=== PATIENT | male | born 1950 | race Caucasian/White ===

== ENCOUNTER 2016-12-07 03:55 | Inpatient (IN) | payer MEDICARE ==
[2016-12-07] VITALS (11 sets, daily range): BP systolic 132–184; BP diastolic 63–113; PULSE 66–134; RESP 12–24; O2SAT 96–98
[~2016-12-07] VITALS: Ht 162.6 cm; Wt 88.4 kg
[~2016-12-07 03:55] MED LIST: ATOR20TA65 PO; COLC0.6T52 PO; HYDR-4003 PO; KEN1O TOP; MECL-107 PO; METO-274 PO; OMEP20TA24 PO; WARF5TAB7 PO
--- NOTE | 2016-12-07 03:55 | ED.REPORT ---
HPI-General Illness Date of Service Dec 07, 2016 ED Provider: Dr. Sai Mae MD A 66 year old male with a history of A-fib previously requiring cardioversion, hypertension and hyperlipidemia presents to the ED via EMS with sudden onset rapid A-fib that began just prior to arrival. In the field, heart rate was in the 150's. Patient was given 20mg of Diltazem en route and heart rate upon arrival to the ED is in the 100's. The patient was awoken by the heart palpitations and reports similar symptoms during his previous episodes of A- fib. He reports 4 previous episodes of A-fib. Associated symptoms include cold sweats and a brief moment of chest pressure. He denies any chest pain, recent cough, nausea or vomiting. Patient has not been taking his spirolactone due to an adverse reaction. Nursing Notes Stated Complaint: RAPID AFIB Nursing Notes Reviewed: Yes Allergies: Coded Allergies: Sulfa (Sulfonamide Antibiotics) (Verified Allergy, Severe, Hives, 12/07/16) amlodipine (Verified Allergy, Severe, Rash,Itching,, 12/07/16) losartan (Verified Allergy, Severe, Hives, ITCHING, 12/07/16) Penicillins (Verified Adverse Reaction, Severe, N&V, 12/07/16) Scheduled Atorvastatin Calcium (Atorvastatin Calcium) 20 Mg Tablet 20 MG PO DAILY Colchicine (Colcrys) 0.6 Mg Tablet 0.6 MG PO DAILY Meclizine HCl (Meclizine HCl) 25 Mg Tablet 12.5 MG PO DAILY Metoprolol Succinate ER (Metoprolol Succinate ER) 100 Mg Tab.er.24h 50 MG PO DAILY Omeprazole Magnesium (Prilosec Otc) 20 Mg Tablet.dr 20 MG PO DAILY Triamcinolone Acet (Triamcinolone Acetonide Ointment) 1 Applic/0.25 Gm Oint 60 APPLIC TOP BID 0.1% Warfarin Sodium (Warfarin Sodium) 5 Mg Tablet 5 MG PO DAILY PT TAKES 5MG ,,,; 2.5MG ,, Scheduled PRN Hydrocodone-Acetaminophen 5-325 mg (Hydrocodone-Acetaminophen 5-325 mg) 1 Each Tablet 1 TABLET PO Q6H PRN PRN For Pain General Time Seen by MD: 03:55 Chief Complaint Other (Heart palpitations) Hx Obtained From: EMS Arrived By: Ambulance Sudden in Onset?: Yes Onset Occurred: Just prior to arrival Symptom Duration: Since onset Associated with: Denies: Chest pain, Cough, Nausea, Vomiting Pertinent Negative: Pt denies other symptoms Recent Healthcare: No recent doctor visit, No recent hospitalization Past Medical History Past Medical History 1. Atrial fibrillation (Previously required cardioversion) 2. Hypertension 3. Hyperlipidemia 4. JAIR on CPAP 5. Depression 6. Guillian [place] Past Surgical History 1. Ventral Hernia repair 2. Right elbow debridment 3. Excision of basal cell carcinoma Smoking History Former Smoker Social History Alcohol Use: 3-5 per day Drug Use: Denies drug use Other Social History: , Local resident Occupation retired Ambulatory Status Independent Review of Systems Full Review of Systems Respiratory: Denies: Non-productive cough Cardiovascular: Reports: Palpitations, Denies: Chest pain GI: Denies: Nausea, Vomiting Skin: Reports Diaphoresis Complete sys rev & neg: except as marked. Physical Exam Vital Signs Vital Signs Date Time Temp Pulse Resp B/P Pulse Ox O2 Delivery O2 Flow Rate FiO2 12/07/16 05:45 100 24 152/71 97 Room Air 12/07/16 05:14 98 22 135/68 96 Room Air 12/07/16 04:42 114 20 165/79 96 Room Air 12/07/16 04:19 107 17 157/107 97 Room Air 12/07/16 04:03 36.2 134 18 184/113 98 Room Air BP 144/102 HR 100 Initial VS: Reviewed Neck: Supple, Non-tender, Full range of motion Extremities: Vascular intact, Neuro intact, No swelling, No tenderness Skin: Warm, Dry, No cyanosis Neurologic: Alert, Oriented, Nonfocal Psychiatric: Mood/affect normal, Behavior normal, Normal thought content General/Constitutional: Awake, Alert Behavior: Positive: Anxious Head / Eyes: Atraumatic, Normocephalic, PERRL Respiratory / Chest: Atraumatic, Breath sounds NL, Breath sounds = bilat, No respiratory distress Cardiovascular: No gallop, No murmurs, No rubs, Peripheral circulation NL, Pulses = bilaterally Heart Rate / Rhythm: Positive: Irreg irregular rhythm Abdomen: Atraumatic, Soft (Obese belly), Non-tender Interpretation & Diagnostics Lab Results Interpretation Result Diagram: 12/07/16 0410 12/07/16 0410 Test 12/07/16 04:10 12/07/16 04:35 White Blood Count 6.0th/mm3 (3.8-10.1) Red Blood Count 4.59mil/mm3 (4.40-5.80) Hemoglobin 13.8g/dL (13.8-17.2) Hematocrit 39.4% (41.0-50.0) Mean Corpuscular Volume 85.8fL (81-100) Mean Corpuscular Hemoglobin 30.1pg (27.0-35.0) Mean Corpuscular Hemoglobin Concent 35.0% (32.0-37.0) Red Cell Distribution Width 12.8% (12.3-15.4) Platelet Count 221bil/L (150-400) Neutrophils (%) (Auto) 58.0% (40-74) Lymphocytes (%) (Auto) 27.7% (14-46) Monocytes (%) (Auto) 8.3% (4-12) Eosinophils (%) (Auto) 5.0% (0-5) Basophils (%) (Auto) 0.5% (0-3) Prothrombin Time 10.0sec (8.1-12.5) Prothromb Time International Ratio 0.94ratio Activated Partial Thromboplast Time 26.4sec (22.8-33.0) Sodium Level 137mEq/L (134-144) Potassium Level 3.1mEq/L (3.5-5.2) Chloride Level 93mEq/L (97-108) Carbon Dioxide Level 20mmol/L (18-29) Blood Urea Nitrogen 16mg/dL (8-27) Creatinine 0.95mg/dL (0.76-1.27) Estimat Glomerular Filtration Rate 85mL/min (>59) Glucose Level 112mg/dL (60-99) Calcium Level 8.7mg/dL (8.5-10.1) Magnesium Level 1.2mg/dL (1.6-2.6) Total Bilirubin 0.4mg/dL (0.0-1.2) Aspartate Amino Transf (AST/SGOT) 30U/L (0-50) Alanine Aminotransferase (ALT/SGPT) 21U/L (0-44) Alkaline Phosphatase 86U/L (25-160) Troponin T 0.010ug/L (0.0-0.011) Pro-B-Type Natriuretic Peptide 169pg/mL (0-376) Total Protein 7.3g/dL (6.4-8.4) Albumin 4.3g/dL (3.4-5.0) Urine Color Straw (YELLOW) Urine Appearance Clear (CLEAR,HAZY) Urine pH 6.0 (5.0-8.0) Urine Specific [place] 1.006 (1.003-1.035) Urine Protein Negativemg/dL (NEG,TRACE) Urine Glucose (UA) Negativemg/dL (NEGATIVE) Urine Ketones Negativemg/dL (NEGATIVE) Urine Occult Blood Negative (NEGATIVE) Urine Nitrite Negative (NEGATIVE) Urine Bilirubin Negative (NEGATIVE) Urine Urobilinogen Normalmg/dL (NORMAL) Urine Leukocyte Esterase Negative (NEGATIVE) Urine RBC 0-2/hpf (0-2) Urine WBC 0-5/hpf (0-5) Urine Epithelial Cells None/hpf (NONE-MOD) Urine Crystals None seen (NONE SEEN) Urine Bacteria None/hpf (NONE-FEW) Urine Hyaline Casts None/lpf (NONE) Urine Granular Casts None seen (NONE SEEN) Urine Waxy Casts None seen (NONE SEEN) Urine Red Blood Cell Casts None seen (NONE SEEN) Urine White Blood Cell Casts None seen (NONE SEEN) Urine Mucus None seen (None Seen) Urine Trichomonas None seen (NONE SEEN) Urine Yeast None (NONE SEEN) Urinalysis Comment None Urine Culture Reflexed Not indicated Hold Urine Received (Received) ECG Interpretation ECG Interpretation: Atrial fibrillation Rate 120 Posterior infarct, recent Lateral leads are also involved Time: 04:00 Interpreted by: ED physician X-Ray Chest Interpretation Chest Xray Interpretation: IMPRESSION: No acute abnormalities Interpretation / Wet Read by: Wet read ED physician Re-Eval/Medical Decision Med Decision/Clinical Course 66-year-old with intermittent atrial fibrillation on anticoagulation, presents in A. fib this morning. His rates been controlled but he remains in A. fib. His magnesium is quite low this morning is being supplemented. He will require cardioversion once his magnesium is been repleted. No indication for urgent cardioversion this morning, and that would best be deferred until his magnesium is replete. He is admitted observation status for completion of rule out protocol and cardioversion later this morning, if not already in sinus after diltiazem IV and magnesium IV. Time of Eval: 04:36 Patient Status: Condition unchanged Re-Evaluation/Progress Note: Patient is rechecked. HR = 103. He reportedly converted into sinus for a brief moment but converted back into A-fib. Time of Eval: 05:17 Patient Status: Condition improved Re-Evaluation/Progress Note: Patient is informed of his results and diagnosis. The patient understands and agrees with the intended treatment plan to admit. Consultation : Referral / Consult Name: Raymundo Burrell MD Consulted With: Hospitalist Call Returned at: 05:36 Health And Wellness Instructor: Will see patient, Agrees with eval, Agrees with plan, Accepts admit Counseled Regarding: Diagnosis, Lab results, Need for admission Discharge & Departure Primary Impression: Atrial fibrillation with RVR Additional Impression: Hypomagnesemia Disposition: ADMITTED TO HOSPITAL Discharge Condition All VS Reviewed: Yes Condition: Stable Referrals: Sameer Vaughan DO (PCP) Scribe Attestation Portions of this note were transcribed by Prince Paula. I, Dr. Mae personally performed the history, physical exam and medical decision-making; I reviewed and confirmed the accuracy of the information in the transcribed note. copies to: Sameer Vaughan Christopher W MD Dec 07, 2016 03:55 PRINCE PAULA Dec 07, 2016 04:03
[2016-12-07] MEDS ORDERED: Diltiazem 5 mg/mL 5 mL Inj IVPUSH ONE (04:10)
[2016-12-07 04:18] LABS: BASOPHILS % (AUTO) 0.5 % (0-3); MONOCYTES % (AUTO) 8.3 % (4-12); Mean Corpuscular Hemoglobin 30.1 pg (27.0-35.0); Mean Corpuscular Volume 85.8 fL (81-100); Platelet Count 221 bil/L (150-400)
[2016-12-07] MEDS: Diltiazem HCl 125 MG in 0.9% Sodium Chloride 100 ML, Pharmacy To Mix 1 EA IV SCH ×2 (04:20→16:35)
[2016-12-07 04:41] LABS: INR 0.94 ratio
[2016-12-07 04:47] LABS: TROPONIN T 0.01 ug/L (0.0-0.011)
[2016-12-07 05:12] LABS: Magnesium 1.2 mg/dL (1.6-2.6)
[2016-12-07] MEDS ORDERED: Magnesium Sulf 4 Gm/100 mL H2O 4 GM in IV Premix 1 EACH IV ONE (05:15)
[2016-12-07 05:25] LABS: APPEARANCE,URINE CLEAR (CLEAR,HAZY); COLOR,URINE STRAW (YELLOW); OCCULT BLOOD,URINE NEGATIVE (NEGATIVE); UROBILINOGEN,URINE NORMAL (NORMAL)
[2016-12-07] MEDS: Lactated Ringer's 1,000 ML IV SCH ×2 (05:38→15:38)
[2016-12-07] MEDS ORDERED: Ondansetron 2 mg/mL 2 mL Inj IVPUSH PRN ×2 (05:40→12:05)
[2016-12-07] MEDS ORDERED: Diltiazem HCl 125 MG in 0.9% Sodium Chloride 100 ML, Pharmacy To Mix 1 EA IV SCH (05:40)
[2016-12-07] MEDS ORDERED: Methohexital 10 mg/mL 50 mL Inj IV ONE (06:00)
--- NOTE | 2016-12-07 08:27 | DRSVH ---
PROCEDURE: X-RAY CHEST ONE VIEW, PORTABLE ([id number]) INDICATIONS: afib TECHNIQUE: One view of the chest was acquired. COMPARISON: [facility], , CHEST 2VW, 11/05/2013, 11:28. FINDINGS: Surgical changes and devices: None. Lungs and pleura: No pleural effusions or pneumothorax. Lungs are clear. Mediastinum: Mediastinal contours appear normal. Heart size is normal. Bones and chest wall: Chronic right rib fractures as before IMPRESSION: No acute disease Dictated by: Ryan Marsh M.D. on 12/07/2016 at 8:25 Approved by: Ryan Marsh M.D. on 12/07/2016 at 8:25
[2016-12-07 11:01] LABS: BASOPHILS % (AUTO) 0.4 % (0-3); EOSINOPHILS % (AUTO) 3.4 % (0-5); MONOCYTES % (AUTO) 7.2 % (4-12); Mean Corpuscular Hemoglobin 30.1 pg (27.0-35.0); Mean Corpuscular Volume 86.7 fL (81-100); NEUTROPHILS % (AUTO) 65.3 % (40-74); Platelet Count 252 bil/L (150-400)
--- NOTE | 2016-12-07 11:12 | NUR ---
VTACH Pt has had multiple runs of VTACH this am. All being 5 beats, pt asymptomatic, resting in bed. MD was rounding during one of the events and made note of it. Labs ordered awaiting results. Pt on MP30 with Cardizem running at 10mcg/ Addendum: 12/07/16 at 1115 by SHANEKA BUTCHER RN Correction 10 mg/hr. Vitals stable.
[2016-12-07] MEDS ORDERED: KCl 40 mEq/D5W 500 mL 40 MEQ in IV Premix 1 EACH IV ONE (12:00)
[2016-12-07] MEDS ORDERED: Alum-Mag Hydrox-Simeth 30 mL Suspension PO PRN (12:05)
[2016-12-07] MEDS ORDERED: Polyethylene Glycol (PEG) 17 Gm Powder PO PRN (12:05)
[2016-12-07] MEDS ORDERED: Methohexital 10 mg/mL 50 mL Inj ONE (15:09)
--- NOTE | 2016-12-07 15:33 | CONS ---
[address] [address] CONSULTATION REPORT PATIENT: NOLBERTO COLÓN : 1950 MR#: [id number] ADMIT: 12/07/2016 JOB ID: [id number] DATE OF SERVICE: 12/07/2016 CARDIOLOGY CONSULTATION: The patient is a 66-year-old gentleman who has a history of intermittent atrial fibrillation. Last night, while he was awake, he noted the onset of rapid irregular palpitations. This has not been associated with significant symptoms other than mild clamminess and mild weakness and perhaps some mild dyspnea. Really did not complain of any kind of anginal chest discomfort at the time, but because of his awareness of the fact that he had gone back into atrial fibrillation, he contacted 911 and was brought to the hospital emergency department for evaluation where he was shown to be in atrial fibrillation. This gentleman presented in 2013 with atrial fibrillation and underwent cardioversion. He stayed in rhythm for about a week and then went back into atrial fibrillation and was diagnosed then at that point with obstructive sleep apnea. He was initiated on CPAP therapy and brought back to the hospital for repeat cardioversion, and previously moderately high alcohol intake was reduced as well. His most recent cardioversion was in February 2014 and he stayed out of atrial fibrillation ever since then. He had been on warfarin therapy but this was discontinued a year ago, and he has been doing well. He has been using his CPAP mask and his sleep apnea seems to be well controlled over the past three years and he has been very pleased that the treatment of his sleep apnea has made a big difference with his recurrent atrial fibrillation. He is followed by Dr. Price in our clinic and has an appointment this coming Friday. At this time, the patient is anxious to be cardioverted so that he can go home and feel better. He has not had any acute symptoms and states that generally within a couple of days he kind of gets used to the atrial fibrillation. He has been n.p.o. since around midnight last night. This gentleman's past medical history is notable for hypertension. He has been recently treated with hydrochlorothiazide but apparently because of mild hypokalemia, he was started up on spironolactone but that gave him fairly significant diarrhea such that when he presented to the emergency department he was noted to be mildly hypokalemic and mildly hypomagnesemic. Medications for his blood pressure otherwise include metoprolol succinate 50 mg daily. He takes atorvastatin 20 mg a day and colchicine. 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 He was at [facility] for over a month and after a period of about six months completely recovered with the exception of some vestibular dysfunction. He has no history of bleeding issues. He denies a history of stroke or TIA symptoms. He has no complaints of anginal chest discomfort. REVIEW OF SYSTEMS: Otherwise unremarkable. PAST MEDICAL HISTORY: Also otherwise unremarkable. SOCIAL HISTORY: Reviewed. PHYSICAL EXAMINATION: Shows a pleasant, tanned 66-year-old gentleman who is 5 feet 4 inches tall, weighs 194 pounds with a body mass index of 33.3. Blood pressures have been ranging in the 130-140 range with heart rates well controlled in the 80-100 range. HEENT examination is unremarkable. He has Mallampati 3 posterior pharynx consistent with his history of obstructive sleep apnea. There is no evidence of jugular venous distention. His carotid upstroke is normal. Lung friedman are clear. Cardiac exam is otherwise unremarkable other than his irregularly irregular rhythm. His abdomen is moderately obese. Distal extremities are warm and well perfused. No focal musculoskeletal or neurologic findings noted. LABORATORY DATA: Notable for normal CBC. Chemistries again show mild hypokalemia with potassium of 3.1 early this morning and 3.4 several hours later. Magnesium level 1.2 which has normalized to 2.0. Blood sugar is borderline elevated. Troponins are negative. BNP is normal and liver function tests are normal. INR is normal at 0.94. IMAGING: Chest x-ray shows normal heart size and clear lung friedman. IMPRESSION: The patient has a history of paroxysmal atrial fibrillation presumably predominantly related to obstructive sleep apnea. It is likely that this episode was precipitated by his diuretics in combination with diarrhea causing moderate hypokalemia and hypomagnesemia. I think it is reasonable to proceed with elective cardioversion at this time since the patient is n.p.o. and is convinced that his atrial fibrillation began late last night. Following cardioversion, he can be discharged home and has a scheduled followup next week with Dr. Price. I would discontinue his hydrochlorothiazide and simply have Dr. Price manage his blood pressure subsequent to his hospital stay. Appreciate the opportunity of seeing the patient and will plan on proceeding in the near future with his cardioversion.
--- NOTE | 2016-12-07 15:38 | PCM.HPMED ---
Subjective Date of Service Dec 07, 2016 Primary Provider: Admitting Physician: Raymundo Burrell MD Primary Care Physician: Sameer Vaughan DO Attending Physician: Raymundo Burrell MD Chief Complaint: Chest pain History of Present Illness: A 66 year old male with a history of A-fib previously requiring cardioversion, hypertension and hyperlipidemia presents to the ED via EMS with sudden onset rapid A-fib that began just prior to arrival. In the field, heart rate was in the 150's. Patient was given 20mg of Diltazem en route and heart rate upon arrival to the ED is in the 100's. The patient was awoken by the heart palpitations and reports similar symptoms during his previous episodes of A- fib. He reports 4 previous episodes of A-fib with the last episode occurring 3 years ago. Associated symptoms include cold sweats and a brief moment of chest pressure. Patient has not been taking his spirolactone due to an adverse reaction. Furthermore, he complains of ongoing diarrhea for the last 3-4 months. He notes that this began when taking the HCTZ. He has been experiencing symptoms of malaise for the last 2-3 weeks and was hoping to "make it until" his appointment with Dr. Reinoso on December 13 for optimization of medications. He believes that the onset of his symptoms can be attributed to an electrolyte balance caused by his many months of diarrhea. Review of Systems: He denies any chest pain, recent cough, nausea or vomiting. Allergies Coded Allergies: Sulfa (Sulfonamide Antibiotics) (Verified Allergy, Severe, Hives, 12/07/16) amlodipine (Verified Allergy, Severe, Rash,Itching,, 12/07/16) losartan (Verified Allergy, Severe, Hives, ITCHING, 12/07/16) Penicillins (Verified Adverse Reaction, Severe, N&V, 12/07/16) lisinopril (Verified Adverse Reaction, Severe, ITCHING, 12/07/16) spironolactone (Verified Adverse Reaction, Severe, ANXIETY, HTN, 12/07/16) Home Medications Potassium chloride 99mg daily Metoprolol 50 mg daily Atorvastatin 20 mg qd Meclizine 12.5mg qd Aspirin 81 mg qd Prilosec 20mg qd Advil 800mg qd Colchicine 0.6mg qd PMH 4 previous episodes of Afib with RVR all episodes responsive to cardioversion. last episode 2013 Hypertension Hyperlipidemia Surgical History Multiple MSK surgeries including: arthroscopies of both knees trigger finger repair in 2004 carpal tunnel repair in 2009. Family History Father CAD Social History Hx Alcohol Use: Yes (Daily) Hx Substance Use: No Hx Tobacco Use: No (stopped smoking in 1988) Smoking Status: Former Smoker Living Arrangement: with Family Exam Vital Signs Vital Sign - Last Date Time Temp Pulse Resp B/P Pulse Ox O2 Delivery O2 Flow Rate FiO2 12/07/16 09:22 36.6 105 12 140/67 98 Room Air Exam General: No acute distress, well-developed, well-nourished HEENT: Normocephalic, atraumatic. External ears without defect. Pupils equal, round, and reactive to light and accommodation. Anicteric sclerae, moist conjunctivae. Cardiovascular: Irregularly irregular rhythm with no murmurs, rubs, or gallops appreciated Pulmonary: Clear to auscultation bilaterally with no crackles, wheezes, or rhonchi. Normal respiratory effort with no use of accessory muscles. Abdomen: Bowel tones present. Soft, nontender, nondistended. Extremities: No clubbing, cyanosis, edema Skin: Normal temperature, turgor, and texture; no rash, ulcers, or subcutaneous nodules appreciated. Neurological: Cranial nerves grossly intact. Reflexes, coordination, and sensory function within normal limits. Normal muscle strength, tone, and bulk. Psychiatric: Normal mood and affect. Alert and oriented to person, place, and time Lab and Diagnostics Result Diagram: 12/07/1640912/07/16 0410 X-Rays, CTs and MRIs X-RAY CHEST ONE VIEW, PORTABLE IMPRESSION: No acute disease Dictated by: Ryan Marsh M.D. on 12/07/2016 at 8:25 Approved by: Ryan Marsh M.D. on 12/07/2016 at 8:25 Assessment & Plan Mr. Caballero is a 66 year old male with a history of A-fib previously requiring cardioversion, hypertension and hyperlipidemia who presented to the ED via EMS with sudden onset rapid A-fib that began just prior to arrival. Atrial fibrillation with rapid ventricular rate, acute, new onset, present on admission, resolved - Magnesium 1.2, potassium 3.1, on arrival, Dysrhythmia likely due to electrolyte imbalance - Patient maintained on diltiazem drip 10 mL/hour until cardioversion can be attempted - Cardioversion for his previous episodes of A. fib have been successful, cardiology consulted and ED was told they could not cardiovert the patient until his Magnesium was corrected Hypomagnesemia, acute, present on admission, resolved - Magnesium 1.2, on arrival - This is likely due to his ongoing diarrhea for the last 3-4 months - Patient treated with 4 g of magnesium given IV in ED - Repeat magnesium post drip Hypokalemia, chronic, present on admission, resolved - Potassium 3.1, on arrival - Patient given infusion of potassium chloride in D5W 40 mEq/premix - We will continue to monitor Disposition: Patient admitted under inpatient status with expected length of stay > 2 midnights for severity of present symptoms, complexities of treatment plan and risk for adverse event Pain Evaluation: Adequate Pain Control GI Prophylaxis: H2 joy VTE Prophylaxis: Sub-Q Heparin (Unfractionated) Resuscitation Status: CPR: Attempt Resuscitation Attending Statement The patient was seen and examined together with Dr. Herrera on 12/08/16 and I have added additional information to the note above. Jelani Herrera DO Dec 07, 2016 11:51 Natasha Kee DO Dec 08, 2016 14:23
--- NOTE | 2016-12-07 15:57 | PCM.DIMED ---
Jelani Herrera DO 12/07/16 1557: Discharge Instructions Date of Service Dec 07, 2016 Dates of Hospitalization Dec 07, 2016 at 06:00 Discharge Diagnosis Discharge Diagnosis A. fib with RVR, acute, new onset, present on admission, resolved Hypomagnesemia, acute, present on admission, resolved Hypokalemia, chronic, present on admission, resolved Medication Instructions Additional med instructions Please continue to your previous home medications except: Hydrochlorothiazide Spironolactone Please add to your current medication regimen: Potassium chloride Test Results Test Results X-rays completed in the hospital today show no acute disease. Diet Discharge Diet: Heart Healthy Activity Discharge Activity: No restrictions Call your provider Call your provider for: Fever or Chills, Shortness of breath, Bleeding, Chest pain, Vomitting, Excessive diarrhea, Weakness (unilateral) Patient Instructions Patient Instructions You came to the emergency department today with A. fib and a fast ventricular rhythm. You were cardioverted here in the hospital today and returned to a sinus rhythm. As you go home please be sure to rest appropriately. Please take medications as described above. Follow-up plan Please follow-up with Dr. Reinoso at the appointment scheduled for December 13 for modification of medication for blood pressure management. Follow-up with primary care as needed Follow-up Provider: Cady Price MD Follow-up with PCP in: 1 week Natasha Kee DO 12/07/16 1656: Discharge Instructions Attending's Statement The patient was seen and examined together with Dr. Herrera on 12/07/16 and I agree with the history, exam and plan as outlined in the note above. Jelani Herrera DO Dec 07, 2016 15:57 Natasha Kee DO Dec 07, 2016 16:56
--- NOTE | 2016-12-07 15:59 | PROCED ---
[address] [address] PROCEDURE NOTE PATIENT: NOLBERTO COLÓN : 1950 MR#: [id number] ADMIT: 12/07/2016 JOB ID: [id number] DATE OF SERVICE: 12/07/2016 SURGEON: Reclamation Furnace Operator: Naresh Del Real MD POSTOPERATIVE DIAGNOSIS(ES): PREOPERATIVE DIAGNOSIS(ES): PROCEDURE: Cardioversion. INDICATION: This patient underwent elective cardioversion today for new onset atrial fibrillation. DETAILS OF PROCEDURE: Following informed consent, he was sedated with 1 mg of Versed followed by 50 mg of Brevital which provided excellent sedation. He underwent a synchronized 200 joule cardioversion shock through anterior-posterior paddles with immediate conversion to normal sinus rhythm. The patient tolerated the procedure well without difficulty or complications. This gentleman will be able to be discharged home later today. I have advised the to avoid any activities that would put him at risk following his sedation today. He has appointment scheduled in our office with Dr. Price who can follow up on his blood pressure management and recurrent atrial fibrillation.
--- NOTE | 2016-12-07 16:44 | PCM.DC.MED ---
Discharge Summary Date of Service Dec 07, 2016 Dates of Hospitalization Date of Hospital Admission Dec 07, 2016 at 06:00 Date of Discharge: Dec 07, 2016 Providers: Admitting Physician: Raymundo Burrell MD Primary Care Physician: Sameer Vaughan DO Attending Physician: Raymundo Burrell MD Diagnosis at Time of Discharge Diagnosis at Time of Discharge A. fib with RVR, acute, new onset, present on admission, resolved s/p cardioversion Hypomagnesemia, acute, present on admission, resolved Hypokalemia, chronic, present on admission, resolved Consultations Cardiology: Dr. Arleth Crespo XRay, CTs & MRIs X-RAY CHEST ONE VIEW, PORTABLE IMPRESSION: No acute disease Dictated by: Ryan Marsh M.D. on 12/07/2016 at 8:25 Approved by: Ryan Marsh M.D. on 12/07/2016 at 8:25 Brief History A 66 year old male with a history of A-fib previously requiring cardioversion, hypertension and hyperlipidemia presents to the ED via EMS with sudden onset rapid A-fib that began just prior to arrival. The patient was awoken by the heart palpitations and reports similar symptoms during his previous episodes of A-fib. He reports 4 previous episodes of A-fib with the last episode occurring 3 years ago. Upon arrival to emergency department he was found to have hypomagnesemia with a level of 1.2 subsequently treated with IV magnesium. Potassium was also low and subsequently treated with IV infusion. Patient was maintained on a diltiazem drip until cardioversion was attempted. Later in the day he was found that the patient's magnesium and potassium had corrected and cardiology thought that the patient could potentially undergo a cardioversion today. Cardioversion was successful, patient returned to sinus rhythm. No complications of cardioversion. Patient is feeling fine and ready to go home. He has an appointment with his stitcher standard machine in 1 week which he will attend. Hospital Course Mr. Caballero is a 66 year old male with a history of A-fib previously requiring cardioversion, hypertension and hyperlipidemia who presented to the ED via EMS with sudden onset rapid A-fib that began just prior to arrival. Atrial fibrillation with rapid ventricular rate, acute, new onset, present on admission, resolved status post cardioversion - Magnesium 1.2, potassium 3.1, on arrival, Dysrhythmia likely due to electrolyte imbalance - Patient maintained on diltiazem drip 10 mL/hour until cardioversion could be attempted - Cardioversion for his previous episodes of A. fib have been successful, cardiology consulted and cardioversion attempted. - Patient converted to sinus directly after cardioversion - Patient not on anticoagulation at home, patient to follow-up with Dr. Reinoso for initiation of this medication if needed, however, as the patient is currently in sinus rhythm this is likely not necessary. Hypomagnesemia, acute, present on admission, resolved - Magnesium 1.2, on arrival - This is likely due to his ongoing diarrhea for the last 3-4 months - Patient treated with 4 g of magnesium given IV in ED - Magnesium currently 2.0 Hypokalemia, chronic, present on admission, resolved - Potassium 3.1, on arrival - Patient given infusion of potassium chloride in D5W 40 mEq/premix - Last potassium 3.4 - Patient will continue taking potassium chloride OTC daily until follow-up with Dr. Reinoso. Patient progressed more quickly than anticipated. It was thought that the patient would need 1-2 days in order to correct his electrolytes however he responded well to IV medications and converted successfully status post cardioversion. Exam Vital Signs (Last) Date Time Temp Pulse Resp B/P Pulse Ox O2 Delivery O2 Flow Rate FiO2 12/07/16 12:03 36.6 79 18 135/63 96 Room Air Exam GEN: Patient was awake, alert, responding appropriately to questions HEENT: Pupils equal round and reactive to light, extraocular eye muscles intact , Neck soft supple, trachea midline, nomocephalic/atraumatic CV: +S1/S2, regular rate and rhythm, no murmurs auscultated Respiratory: CTAB, no wheezes, rales, rhonchi GI: +bowel sounds x4, soft, compressible, nontender to palpation EXT: no clubbing, cyanosis, edema Neuro: Cranial nerves II-XII grossly intact Psych: mood and affect were appropriate Test 12/07/16 04:10 12/07/16 04:35 12/07/16 06:55 Prothrombin Time 10.0sec (8.1-12.5) Prothromb Time International Ratio 0.94ratio Activated Partial Thromboplast Time 26.4sec (22.8-33.0) Pro-B-Type Natriuretic Peptide 169pg/mL (0-376) Urine Color Straw (YELLOW) Urine Appearance Clear (CLEAR,HAZY) Urine pH 6.0 (5.0-8.0) Urine Specific Newell 1.006 (1.003-1.035) Urine Protein Negativemg/dL (NEG,TRACE) Urine Glucose (UA) Negativemg/dL (NEGATIVE) Urine Ketones Negativemg/dL (NEGATIVE) Urine Occult Blood Negative (NEGATIVE) Urine Nitrite Negative (NEGATIVE) Urine Bilirubin Negative (NEGATIVE) Urine Urobilinogen Normalmg/dL (NORMAL) Urine Leukocyte Esterase Negative (NEGATIVE) Urine RBC 0-2/hpf (0-2) Urine WBC 0-5/hpf (0-5) Urine Epithelial Cells None/hpf (NONE-MOD) Urine Crystals None seen (NONE SEEN) Urine Bacteria None/hpf (NONE-FEW) Urine Hyaline Casts None/lpf (NONE) Urine Granular Casts None seen (NONE SEEN) Urine Waxy Casts None seen (NONE SEEN) Urine Red Blood Cell Casts None seen (NONE SEEN) Urine White Blood Cell Casts None seen (NONE SEEN) Urine Mucus None seen (None Seen) Urine Trichomonas None seen (NONE SEEN) Urine Yeast None (NONE SEEN) Urinalysis Comment None Urine Culture Reflexed Not indicated Hold Urine Received (Received) White Blood Count 7.1th/mm3 (3.8-10.1) Red Blood Count 4.75mil/mm3 (4.40-5.80) Hemoglobin 14.3g/dL (13.8-17.2) Hematocrit 41.2% (41.0-50.0) Mean Corpuscular Volume 86.7fL (81-100) Mean Corpuscular Hemoglobin 30.1pg (27.0-35.0) Mean Corpuscular Hemoglobin Concent 34.7% (32.0-37.0) Red Cell Distribution Width 13.1% (12.3-15.4) Platelet Count 252bil/L (150-400) Neutrophils (%) (Auto) 65.3% (40-74) Lymphocytes (%) (Auto) 23.1% (14-46) Monocytes (%) (Auto) 7.2% (4-12) Eosinophils (%) (Auto) 3.4% (0-5) Basophils (%) (Auto) 0.4% (0-3) Sodium Level 139mEq/L (134-144) Potassium Level 3.4mEq/L (3.5-5.2) Chloride Level 99mEq/L (97-108) Carbon Dioxide Level 20mmol/L (18-29) Blood Urea Nitrogen 15mg/dL (8-27) Creatinine 0.95mg/dL (0.76-1.27) Estimat Glomerular Filtration Rate 85mL/min (>59) Glucose Level 113mg/dL (60-99) Calcium Level 9.0mg/dL (8.5-10.1) Magnesium Level 2.0mg/dL (1.6-2.6) Total Bilirubin 0.3mg/dL (0.0-1.2) Aspartate Amino Transf (AST/SGOT) 27U/L (0-50) Alanine Aminotransferase (ALT/SGPT) 19U/L (0-44) Alkaline Phosphatase 88U/L (25-160) Troponin T 0.010ug/L (0.0-0.011) Total Protein 7.2g/dL (6.4-8.4) Albumin 4.5g/dL (3.4-5.0) Discharge Medications Discharge Medications Atorvastatin Calcium (Atorvastatin Calcium) 20 Mg Tablet 20 MG PO DAILY ( Reported) Colchicine (Colcrys) 0.6 Mg Tablet 0.6 MG PO DAILY (Reported) Meclizine HCl (Meclizine HCl) 25 Mg Tablet 12.5 MG PO DAILY (Reported) Metoprolol Succinate ER (Metoprolol Succinate ER) 100 Mg Tab.er.24h 50 MG PO DAILY (Reported) Omeprazole Magnesium (Prilosec Otc) 20 Mg Tablet.dr 20 MG PO DAILY (Reported) Triamcinolone Acet (Triamcinolone Acetonide Ointment) 1 Applic/0.25 Gm Oint 60 APPLIC TOP BID (Reported) 0.1% Warfarin Sodium (Warfarin Sodium) 5 Mg Tablet 5 MG PO DAILY (Reported) PT TAKES 5MG ,,,; 2.5MG ,, As needed Hydrocodone-Acetaminophen 5-325 mg (Hydrocodone-Acetaminophen 5-325 mg) 1 Each Tablet 1 TABLET PO Q6H PRN PRN For Pain (Reported) Additional med instructions Please continue to your previous home medications except: Hydrochlorothiazide Spironolactone Please add to your current medication regimen: Potassium chloride Followup Plan Disposition: Home with appropriate follow-up from cardiology Follow-up plan Please follow-up with Dr. Reinoso at the appointment scheduled for December 13 for modification of medication for blood pressure management. Follow-up with primary care as needed Discharge Diet: Heart Healthy Discharge Activity: No restrictions Patient Instructions You came to the emergency department today with A. fib and a fast ventricular rhythm. You were cardioverted here in the hospital today and returned to a sinus rhythm. As you go home please be sure to rest appropriately. Please take medications as described above. Follow-up Provider: Cady Price MD Follow-up with PCP in: 1 week Provider: Sameer Vaughan DO Follow-up in: 2 weeks Time spent Greater than 35 minutes spent in documentation and coordination of discharge Attending Statement The patient was seen and examined together with Dr. Herrera on 12/07/16 and I have added additional information to the note above. copies to: Sameer Vaughan DO; Cady Price MD, Adam J DO Dec 07, 2016 16:44 Natasha Kee DO Dec 08, 2016 15:38
--- NOTE | 2016-12-07 17:08 | NUR ---
Cardioversion Pt was cardioverted at [address] Del Real's orders. Pt had previously been Afib 80's at rest, up to 160's with activity. Cardioversion happened with respiratory, a couple RN's and residents at the bedside. Pt converted with 200 joules with out complications. Sedation consisted of 1 versed and 50 of Brevetol. Vitals signs take Q5 min during procedure and Q15 for recovery and remain stable, end tidal CO2 monitoring included. Pt A&Ox3 shortly after and no c/o pain. Pt currently in NSR 60's and eating dinner.
--- NOTE | 2016-12-07 17:31 | NUR ---
stand by for cardioversion done at 1527 pt was set up on ETCO2 monitor (at 32) and O2 at 3 liters per minute. He was sedated by RN prior to procedure and converted to NSR with 1 shock of 200 joules. He has a hx of sleep apnea and he did become apenic for several seconds requiring jaw thrust to open air waw. He worke fairly quickly in just a couple minutes and was able to maintain an open airway on his own
--- NOTE | 2016-12-07 18:53 | NUR ---
Discharge Pt left at 1830 with . All discharge instructions gone over and understood. No changes in medications were made, pt states he has been off Coumadin for a year. Vitals stable, walking the hallway HR was SR 97, no c/o pain, just generalized weakness. Pt left with all personal belongings. IV and tele removed. All questions answered.
== END 2016-12-07 18:42 | disposition home or self-care (01) | DRG 310 ==
LOC: SED 03:55 → OBSVTOIN 06:00 → PCC 06:00
PROVIDERS: ADMIT Hospitalist; ATTEND Hospitalist
PROC: 5A2204Z Restoration of Cardiac Rhythm, Single (ICD-10-PCS; principal; 2016-12-07)
PROC: 3E033RZ Introduction of Antiarrhythmic into Peripheral Vein, Percutaneous Approach (ICD-10-PCS; 2016-12-07)
DX: I48.0 Paroxysmal atrial fibrillation (principal); I10 Essential (primary) hypertension; E78.5 Hyperlipidemia, unspecified; G47.33 Obstructive sleep apnea (adult) (pediatric); F32.9 Major depressive disorder, single episode, unspecified; E83.42 Hypomagnesemia; E87.6 Hypokalemia; Z79.01 Long term (current) use of anticoagulants; Z87.891 Personal history of nicotine dependence; Z88.0 Allergy status to penicillin